=== PATIENT | male | born 1955 | race Caucasian/White ===

== ENCOUNTER → 2018-03-25 | Outpatient (CLI) | payer BC | END | disposition home or self-care (01) | LOC: EKG 08:45 | DX: I05.1 Rheumatic mitral insufficiency (principal); I06.1 Rheumatic aortic insufficiency; I07.1 Rheumatic tricuspid insufficiency; I51.7 Cardiomegaly; I51.89 Other ill-defined heart diseases; R53.83 Other fatigue | CPT/HCPCS: 93306 ==